=== PATIENT | male | born 1965 | race Caucasian/White ===

== ENCOUNTER 2016-11-29 17:28 | Emergency (ER) | payer OTHER ==
[~2016-11-29] VITALS: Ht 177.8 cm; Wt 95.4 kg
[~2016-11-29 17:28] MED LIST: NOHOMEMEDS
[2016-11-29 18:42] LABS: HEMATOCRIT 45.3 % (38.0-50.0); MCH 33.3 PG (29.0-34.0); MCV 92.6 FL (86-99); MEAN PLAT.VOLUME 9.6 uM^3 (9.0-12.4); PLATELET COUNT 233 K/uL (156-360); RBC DIS.WIDTH-SD 41.1 % (39-53); RED BLOOD COUNT 4.89 M/uL (4.00-5.50); WHITE BLOOD COUNT 9.6 K/uL (4.1-10.2)
[2016-11-29 18:52] LABS: CHLORIDE 109 mEq/L (99-109); POTASSIUM 3.8 mEq/L (3.7-5.4); SODIUM 141 mEq/L (136-147)
[2016-11-29 18:54] LABS: GLUCOSE 121 mg/dL (70-99)
[2016-11-29 18:56] LABS: ANION GAP 9 MEQ/L (2-14)
[2016-11-29 18:58] LABS: GFR ESTIMATE (CALCULATED) > 59 mL/min/
[2016-11-29 18:59] LABS: UREA NITROGEN (BUN) 23 mg/dL (9-23)
[2016-11-29] MEDS ORDERED: LISINOPRIL5 MG PO (19:01)
[2016-11-29 19:02] LABS: TROP-I INTERPRETATION NEGATIVE; TROPONIN-I 0.01 ng/mL (0.0-0.30)
[2016-11-29 19:43] VITALS: BP 140/82
== END 2016-11-29 19:43 | disposition home or self-care (01) ==
LOC: EME 17:28
PROVIDERS: Nurse Practitioner Family
DX: I10 Essential (primary) hypertension (principal); R51 Headache; F17.200 Nicotine dependence, unspecified, uncomplicated
CPT/HCPCS: 70450; 80048; 84484; 85027; 93005; 99281; 99284